=== PATIENT | male | born 1945 | race Caucasian/White ===

== ENCOUNTER → 2022-10-20 14:01 | Outpatient (CLI) | payer OTHER, SELFPAY ==
--- NOTE | 2022-10-20 14:07 | DI.CT.S_ITS ---
PROCEDURE: CT LUMBAR SPINE WO CON INDICATIONS: Radiculopathy, lumbar region TECHNIQUE: Noncontrast 3 mm thick sections acquired from the T12 level to the sacrum. Sagittal and coronal reformats were constructed. For radiation dose reduction, the following was used: automated exposure control. COMPARISON: [facility], CR, XR LUMBAR SPINE WITH OBLIQUES PLUS FLEXION EXTENSION, 08/12/2022, 15:08. FINDINGS: Image quality: Excellent. Bones: No acute vertebral body compression fractures. No suspicious lytic or blastic bony lesions. Moderate levoconvex lumbar scoliosis is seen. There is mild retrolisthesis at L1-L2 and L2-L3, with minimal retrolisthesis at L3-L4. Mild grade 1 anterolisthesis is seen at L4-L5 and L5-S1. No associated pars defects are seen. There is shift of L1 and L2 to the right at this level, measuring 8 mm, as on series 4, image 23. T12-L1: Mild loss of disc height is seen. Mild generalized disc bulge is seen. No significant neural foraminal or central canal narrowing can be seen. L1-L2: At least moderate loss of disc height is seen. Endplate irregularity and sclerosis can be seen. Vacuum disc phenomenon is seen at this level. Moderate disc bulge is seen, which is eccentric to the left. There are partially bridging endplate osteophytes on the left, as on series 4, image 23. There is at least moderate bilateral neural foraminal narrowing. Moderate central canal narrowing is seen. L2-L3: Moderate to severe loss of disc height can be seen. Vacuum disc phenomenon is seen at this level. At least moderate disc bulge is seen. Mild to moderate facet hypertrophy can be seen at this level. There is severe right-sided and moderate to severe left-sided neural foraminal narrowing. At least moderate central canal narrowing can be seen. L3-L4: There is moderate to severe loss of disc height seen on the left side. Vacuum disc phenomenon is seen at this level. Endplate irregularity and sclerosis can be seen. At least moderate disc bulge can be seen at this level. There is at least moderate bilateral neural foraminal narrowing seen. Moderate central canal narrowing is seen. L4-L5: [id number]-[id number] loss of disc height can be seen. At least moderate disc bulge is seen. Moderate to prominent facet hypertrophy can be seen at this level. Moderate to severe bilateral neural foraminal narrowing can be seen, left worse than right. There is severe central canal narrowing. L5-S1: [id number] loss of disc height is seen. Mild to moderate disc bulge is seen. Prominent facet hypertrophy is seen at this level. There is moderate to severe bilateral neural foraminal narrowing. Moderate to severe central canal narrowing is seen. Soft tissues: No retroperitoneal masses or hematomas. Visualized aorta is normal in caliber. Dense atherosclerotic calcification is noted. Pacer leads are seen. Moderate hiatal hernia noted. IMPRESSION: Multiple levels of significant lumbar spine degenerative change can be seen, which are overall worst at L4-L5 and L5-S1. Moderate levoconvex lumbar scoliosis can be seen. Additional findings: Pacer leads Moderate hiatal hernia Dictated by: Bahman Benavides M.D. on 10/20/2022 at 17:16 Approved by: Bahman Benavides M.D. on 10/20/2022 at 17:21
== END ==
PROVIDERS: PCP Internal Medicine; Referring Provider Physical Medicine & Rehabilitation Pain Medicine; Visit Provider Physical Medicine & Rehabilitation Pain Medicine
DX: M47.26 Other spondylosis with radiculopathy, lumbar region; M47.27 Other spondylosis with radiculopathy, lumbosacral region
CPT/HCPCS: 72131

== ENCOUNTER → 2023-12-04 14:51 | Outpatient (CLI) | payer OTHER, SELFPAY ==
--- NOTE | 2023-12-04 14:53 | DI.US.S_ITS ---
PROCEDURE: US ARTERIAL DUPLEX LE BI INDICATIONS: Peripheral arterial disease TECHNIQUE: Color and pulse Doppler interrogation was performed of both lower extremity arterial systems, with image documentation. COMPARISON: None. FINDINGS: Right lower extremity: Common femoral artery: 125 cm/sec, with monophasic flow. Deep femoral artery: 112 cm/sec, with monophasic flow. Proximal superficial femoral artery: 85 cm/sec, with monophasic flow. Mid superficial femoral artery: 84 cm/sec, with monophasic flow. Distal superficial femoral artery: 86 cm/sec, with monophasic flow. Popliteal artery: 26 cm/sec, with monophasic flow. Posterior tibial artery: 49 cm/sec, with monophasic flow. Anterior tibial artery/dorsalis pedis: 28 cm/sec, with monophasic flow. Adame-scale imaging description: Extensive atherosclerotic plaque. Left lower extremity: Common femoral artery: 63 cm/sec, with monophasic flow. Deep femoral artery: 54 cm/sec, with monophasic flow. Proximal superficial femoral artery: 70 cm/sec, with monophasic flow. Mid superficial femoral artery: 38 cm/sec, with monophasic flow. Distal superficial femoral artery: 29 cm/sec, with monophasic flow. Popliteal artery: 40 cm/sec, with monophasic flow. Posterior tibial artery: 20 cm/sec, with monophasic flow. Anterior tibial artery/dorsalis pedis: 11 cm/sec, with monophasic flow. Adame-scale imaging description: Extensive atherosclerotic plaque IMPRESSION: 1. Extensive atherosclerotic plaque of the bilateral lower extremity arterial vasculature. 2. Diffusely monophasic waveforms throughout the bilateral lower extremity arterial vasculature with low velocities suggestive of aortoiliac inflow disease. No velocity shift in the bilateral lower extremities to suggest a hemodynamically significant stenosis. Consider a CTA bilateral lower extremity runoff for further evaluation. Dictated by: Lawson Johnston M.D. on 12/04/2023 at 23:03 Approved by: Lawson Johnston M.D. on 12/04/2023 at 23:18
== END ==
PROVIDERS: PCP Internal Medicine; Referring Provider Orthopaedic Surgery Foot and Ankle Surgery; Visit Provider Orthopaedic Surgery Foot and Ankle Surgery
DX: I70.203 Unspecified atherosclerosis of native arteries of extremities, bilateral legs (principal); M25.562 Pain in left knee
CPT/HCPCS: 93925